=== PATIENT | female | born 1995 | race African-American/Black ===

== ENCOUNTER 2019-11-23 17:40 | Emergency (ER) | payer OTHER, MEDICAID ==
[~2019-11-23] VITALS: Ht 144.8 cm; Wt 52.6 kg
[2019-11-23 17:49] VITALS: Ht 144.8 cm; Wt 52.6 kg
[2019-11-23 18:40] VITALS: BP 90/60
== END 2019-11-23 18:40 | disposition home or self-care (01) ==
LOC: ED 17:40
DX: O9A.211 Injury, poisoning and certain other consequences of external causes complicating pregnancy, first trimester (principal); S16.1XXA Strain of muscle, fascia and tendon at neck level, initial encounter; S39.012A Strain of muscle, fascia and tendon of lower back, initial encounter; Z3A.01 Less than 8 weeks gestation of pregnancy; V49.3XXA Car occupant (driver) (passenger) injured in unspecified nontraffic accident, initial encounter; Y93.I9 Activity, other involving external motion; Y92.413 State road as the place of occurrence of the external cause; Y99.8 Other external cause status